=== PATIENT | female | born 1950 | race Caucasian/White ===

== ENCOUNTER 2024-10-27 12:46 | Outpatient (CLI) | payer MEDICARE, BC ==
[~2024-10-27] VITALS: Ht 165.1 cm; Wt 131.1 kg
[2024-10-27 13:18] LABS: ABG BASE EXCESS -1.3 mmol/L (-2.0-3.0); ABG HCO3 21.3 mmol/L (21.0-28.0); ABG OXYGEN SATURATION 96.5 % (94.0-98.0); ABG PCO2 (T) 30.3 mmHg (32.0-45.0); ABG PH (T) 7.464 (7.350-7.450); ABG PO2 (T) 83.5 mmHg (83.0-108.0); ALLEN'S TEST POSITIVE; FCOHb 0.2 % (0.5-1.5); FHHb 3.5 % (0.0-5.0); FMetHb 0.3 % (0.0-1.5); MODE ROOM AIR; TOTAL HEMOGLOBIN 15.2 G/dl (12.0-16.0)
[2024-10-27] MEDS: albuterol 2.5 MG/3 ML nebule NEB ONE (13:54)
[2024-10-27 14:01] VITALS: PULSE 104; RESP 18; O2SAT 96
[2024-10-27 14:12] VITALS: PULSE 106; RESP 16
== END 2024-10-27 23:59 | disposition home or self-care (01) ==
LOC: RT 12:46
PROVIDERS: ATTEND Surgery
DX: J98.4 Other disorders of lung (principal)
CPT/HCPCS: 36600; 82803; 85018; 94060; 94727; 94729; 94760